=== PATIENT | female | born 1950 | race Two or more races ===

== ENCOUNTER 2024-02-26 16:08 | Emergency (ER) | payer MEDICARE, MEDICAID ==
[~2024-02-26] VITALS: Ht 165.1 cm; Wt 72.1 kg
[2024-02-26 16:54] LABS: Urine Bacteria None Seen /hpf (None Seen)
--- NOTE | 2024-02-26 16:57 | DVH ---
EXAM: CT STROKE CTH HISTORY: LEFT FACIAL DROOP COMPARISON: None TECHNIQUE: Axial images of the head were obtained and reformatted in coronal and sagittal planes. All CT scans at this medical facility are performed using dose modulation techniques as appropriate t o a performed exam including the following: Automated exposure control was utilized; adjustment of th e MA and/or KV according to patient size; and use of iterative reconstruction technique. CT Dose: CTDI volume is 51.84 mGy. Dose-length product is 831.2 mGy*cm FINDINGS: There is no evidence of acute intracranial hemorrhage, mass, mass effect midline shift. There is no h ydrocephalus or extra-axial fluid collection. Lucio-white matter differentiation is maintained.. The visualized paranasal sinuses and mastoid air cells are clear. The calvarium is intact. IMPRESSION: 1. No acute intracranial process. HS:Y
[2024-02-26 17:13] LABS: Urine Blood Negative /uL (Negative); Urine Clarity Clear (Clear); Urine Color Light-Yellow (Yellow); Urine Mucus FEW (None Seen); Urine Protein, UAD TRACE (Negative); Urine Urobilinogen Normal (Negative); Urine WBC <1 /hpf (0 - 5)
[2024-02-26 17:38] LABS: Basophils # (auto) 0.1 10 ^3/uL (0-0.2); Eosinophils # (auto) 0.2 10 ^3/uL (0-0.8); Eosinophils % (auto) 2.4 % (0.0-7.0); Hematocrit 45.9 % (36.0-46.0); Hemoglobin 15.3 g/dL (12.2-16.2); Lymphocytes # (auto) 2.5 10 ^3/uL (0.4-5.4); Lymphocytes % (auto) 34.2 % (10.0-50.0); Mean Corpuscular Hgb Conc. 33.3 g/dL (32.0-36.0); Monocytes # (auto) 0.5 10 ^3/uL (0-1.3); Monocytes % (auto) 6.6 % (0.0-12.0); Neutrophils % (auto) 55.8 % (37.0-80.0); Nucleated Red Blood Cells % 0.1 %; Platelet Count (auto) 189 10^3/uL (140-450); Red Blood Cells 5.46 10^6/uL (4.0-5.20); Red Cell Distribution Width 14.3 % (11.8-14.3); White Blood Cell 7.2 10^3/uL (4.4-10.8)
[2024-02-26 17:57] LABS: Alanine Aminotransferase 22 U/L (7-40); Albumin 4.6 g/dL (3.2-4.8); Alkaline Phosphatase 134 U/L (46-116); Anion Gap 7 (5-15); Aspartate Aminotransferase 14 U/L (13-40); BUN/Creatinine Ratio 16.9 (10.0-20.0); Bilirubin, Total 0.3 mg/dL (0.2-1.0); Blood Urea Nitrogen 11 mg/dL (9-23); Calcium 10.5 mg/dL (8.7-10.4); Carbon Dioxide 28 mmol/L (20-31); Chloride 106 mmol/L (98-107); Glucose 196 mg/dL (74-106); Magnesium 2.1 mg/dL (1.6-2.6); Sodium 141 mmol/L (136-145); Total Protein 7.9 g/dL (5.7-8.2)
--- NOTE | 2024-02-26 19:20 | ED.PDOC ---
History of Present Illness HPI Comments A 73 year old female presents to the ED with a chief complaint of LT sided facial weakness onset yesterday. Patient states she woke up yesterday experiencing LT sided facial weakness and numbness. Patient states she began experiencing LT eye pain with blurry vision on Saturday, saw PCP on Saturday but nothing was done. Patient denies any past medical history. No other symptoms or modifying factors present at this time. Chief Complaint: Left Sided Weakness Time Seen by MD: 19:09 Information Source: Patient, Relative (Child) Mode of Arrival: Ambulatory Severity: Moderate Timing: Days Duration: Since onset Prehospital treatment: None Past Medical History PAST MEDICAL HISTORY: Denies Surgical History: , Hysterectomy STAFF APPRAISER History: No Pertinent STAFF APPRAISER History Family History Family History: Reviewed,noncontributory to illness, Unknown Social History Smoker: Non-Smoker Alcohol: Denies ETOH Use Drugs: Denies Drug Use Lives In: Home Constitutional: denies: chills, diaphoresis, fatigue, fever, malaise, sweats, weakness, others EENTM: reports: blurred vision (LT eye), eye pain (LT eye); denies: double vision, ear bleeding, ear discharge, ear drainage, ear pain, ear ringing, eye redness, hearing loss, mouth pain, mouth swelling, nasal discharge, nose bleeding, nose congestion, nose pain, photophobia, tearing, throat pain, throat swelling, voice changes, others Respiratory: denies: cough, hemoptysis, orthopnea, SOB at rest, shortness of breath, SOB with excertion, stridor, wheezing, others Cardiovascular: denies: chest pain, dizzy spells, diaphoresis, Dyspnea on exertion, edema, irregular heart beat, left arm pain, lightheadedness, palpitations, PND, syncope, others Gastrointestinal: denies: abdomen distended, abdominal pain, blood streaked bowels, constipated, diarrhea, dysphagia, difficulty swallowing, hematemesis, melena, nausea, poor appetite, poor fluid intake, rectal bleeding, rectal pain, vomiting, others Genitourinary: denies: abnormal vagina bleeding, burning, dyspareunia, dysuria, flank pain, frequency, hematuria, incontinence, pain, , vagina discharge, urgency, others Neurological: reports: left sided numbness (facial), left sided weakness (facial); denies: dizziness, fainting, headache, numbness, paresthesia, pre- existing deficit, right sided numbness, right sided weakness, seizure, speech problems, tingling, tremors, weakness, others Musculoskeletal: denies: back pain, gout, joint pain, joint swelling, muscle pain, muscle stiffness, neck pain, others Integumetry: denies: bruises, change in color, change in hair/nails, dryness, l aceration, lesions, lumps, rash, wounds, others Allergic/Immunocompromised: denies: Difficulty Healing, Frequent Infections, Hives, Itching, others Hematologic/Lymphatic: denies: anemia, blood clots, easy bleeding, easy bruising, swollen glands, others Endocrine: denies: excessive hunger, excessive sweating, excessive thirst, excessive urination, flushing, intolerance to cold, intolerance to heat, unexplained weight gain, unexplained weight loss, others Psychiatric: denies: anxiety, bipolar disorder, depression, hopeless, panic disorder, schizophrenia, sleepless, suicidal, others All Other Systems: Reviewed and Negative Physical Exam General Appearance: Mild Distress, Normal HEENT: Normal ENT Inspection, Pharynx Normal, TMs Normal Neck: Full Range of Motion, Non-Tender, Normal, Normal Inspection Respiratory: Chest Non-Tender, Lungs Clear, No Accessory Muscle Use, No Respiratory Distress, Normal Breath Sounds Cardiovascular: No Edema, No JVD, No Murmur, No Gallop, Normal Peripheral Pulses, Regular Rate/Rhythm Breast Exam: Deferred Gastrointestinal: No Organomegaly, Non Tender, No Pulsatile Mass, Normal Bowel Sounds, Soft Genitalia: Deferred Pelvic: Deferred Rectal: Deferred Extremities: No calf tenderness, Normal capillary refill, Normal inspection, Normal range of motion, Non-tender, No pedal edema Musculoskeletal : Apperance: Normal Neurologic: Alert, scheduler conveyor II-XII nml as Tested (Seventh nerve palsy), Facial Droop (left), Motor Weakness, Normal Mood, No Sensory Deficits, Sensory Deficit (7th nerve paralysis) Cerebellar Function: Normal Reflexes: Normal Skin: Dry, Normal Color, Warm Lymphatic: No Adenopathy Was a procedure done? Was a procedure done?: No EKG EKG : Cardiac Rhythm: NSR (82 bpm) Comments NSR with 82 bpm Differential Dx Considerations may include: CVA TIA Hanson's palsy X-Ray, Labs, Meds, VS Vital Signs Date Time Temp Pulse Resp B/P (MAP) Pulse Ox O2 Delivery O2 Flow Rate FiO2 02/26/24 16:19 82 02/26/24 16:10 98.0 78 16 184/84 (117) 96 Lab Test 02/26/24 17:22 02/26/24 16:00 Range/Units White Blood Count 7.2 4.4-10.8 10^3/uL Red Blood Count 5.46 H 4.0-5.20 10^6/uL Hemoglobin 15.3 12.2-16.2 g/dL Hematocrit 45.9 36.0-46.0 % Mean Corpuscular Volume 84.0 80.0-100.0 fL Mean Corpuscular Hemoglobin 28.0 28.0-32.0 pg Mean Corpuscular Hemoglobin Concent 33.3 32.0-36.0 g/dL Red Cell Distribution Width 14.3 11.8-14.3 % Platelet Count 189 140-450 10^3/uL Mean Platelet Volume 10.0 6.9-10.8 fL Neutrophils (%) (Auto) 55.8 37.0-80.0 % Lymphocytes (%) (Auto) 34.2 10.0-50.0 % Monocytes (%) (Auto) 6.6 0.0-12.0 % Eosinophils (%) (Auto) 2.4 0.0-7.0 % Basophils (%) (Auto) 1.0 0.0-2.0 % Neutrophils # (Auto) 4.0 1.6-8.6 10 ^3/uL Lymphocytes # (Auto) 2.5 0.4-5.4 10 ^3/uL Monocytes # (Auto) 0.5 0-1.3 10 ^3/uL Eosinophils # (Auto) 0.2 0-0.8 10 ^3/uL Basophils # (Auto) 0.1 0-0.2 10 ^3/uL Nucleated Red Blood Cells 0.1 % Sodium Level 141 136-145 mmol/L Potassium Level 4.0 3.5-5.1 mmol/L Chloride Level 106 98-107 mmol/L Carbon Dioxide Level 28 20-31 mmol/L Anion Gap 7 5-15 Blood Urea Nitrogen 11 9-23 mg/dL Creatinine 0.65 0.550-1.02 mg/dL Glomerular Filtration Rate Calc 92 >90 mL/min BUN/Creatinine Ratio 16.9 10.0-20.0 Serum Glucose 196 H 74-106 mg/dL Calcium Level 10.5 H 8.7-10.4 mg/dL Magnesium Level 2.1 1.6-2.6 mg/dL Total Bilirubin 0.3 0.2-1.0 mg/dL Aspartate Amino Transferase (AST) 14 13-40 U/L Alanine Aminotransferase (ALT) 22 7-40 U/L Alkaline Phosphatase 134 H 46-116 U/L Troponin I High Sensitivity 6 </=34 ng/L Total Protein 7.9 5.7-8.2 g/dL Albumin 4.6 3.2-4.8 g/dL Urine Color Light-yellow Yellow Urine Clarity Clear Clear Urine pH 5.0 5.0-9.0 Urine Specific Marble 1.040 H 1.001-1.035 Urine Protein Trace H Negative Urine Ketones Negative Negative Urine Blood Negative Negative /uL Urine Nitrite Negative Negative Urine Bilirubin Negative Negative Urine Urobilinogen Normal Negative mg/dL Urine Leukocyte Esterase Negative Negative /uL Urine RBC 1 0 - 4 /hpf Urine WBC <1 0 - 5 /hpf Urine Squamous Epithelial Cells Few <5 /hpf Urine Bacteria None seen None Seen /hpf Urine Mucus Few None Seen Urine Glucose 4+ H Normal mg/dL [place] [id number] Ph: [phone] DIAGNOSTIC IMAGING Diagnostic Imaging Report : [id number] Signed PATIENT: SOFIA BEACH ACCT: [id number] UNIT: [id number] : 1950 LOC: ER ROOM / BED: / AGE / SEX: 73 / F ADM STATUS: REG ER SERVICE ORDERING PHYSICIAN: CELE WHITE DO PROCEDURE(s): CTH - STROKE CTH REASON: LEFT FACIAL DROOP ORDER NUMBER(s): [id number], ACCESSION NUMBER(s): [id number] EXAM: CT STROKE CTH HISTORY: LEFT FACIAL DROOP COMPARISON: None TECHNIQUE: Axial images of the head were obtained and reformatted in coronal and sagittal planes. All CT scans at this medical facility are performed using dose modulation techniques as appropriate to a performed exam including the following: Automated exposure control was utilized; adjustment of the MA and/or KV according to patient size; and use of iterative reconstruction technique. CT Dose: CTDI volume is 51.84 mGy. Dose-length product is 831.2 mGy*cm FINDINGS: There is no evidence of acute intracranial hemorrhage, mass, mass effect midline shift. There is no hydrocephalus or extra-axial fluid collection. Lucio-white matter differentiation is maintained.. The visualized paranasal sinuses and mastoid air cells are clear. The calvarium is intact. IMPRESSION: 1. No acute intracranial process. HS:Y ATED BY: PERCY ROGEL MD DICTATED DATE/TIME: 02/26/241655 SIGNED BY: PERCY ROGEL MD SIGNED DATE/TIME: 02/26/241655 CC: CBC is normal. CMP is normal except glucose 196 UA is normal. Troponin is six. EKG shows normal sinus rhythm with a heart rate of 82 and PVCs. The patient is we will be discharged with Hanson's palsy and treated with a tapering dose of prednisone. She is to follow up with her primary care for Neurology referral. Time of 1ST Reevaluation: 19:39 Reevaluation 1ST: Unchanged Patient Education/Counseling: Diagnosis, Treatment, Prognosis Family Education/Counseling: Diagnosis, Treatment, Prognosis Departure 1 Departure Time of Disposition: 19:37 Impression: Primary Impression: Hanson's palsy Disposition: 01 HOME / SELF CARE / HOMELESS Condition: Fair Additional Instructions: Reassessed patient, vital signs stable. Denies any new symptoms. Patient is able to tolerate PO and ambulate/be mobile at their baseline without concern. Risks and benefits of all medications given or prescribed, if any, discussed. All lab work, imaging and diagnostic studies were reviewed by me. The patient was counseled extensively on my clinical impression, diagnosis, expected course of the disease, and plan, including their follow-up care. Will discharge patient. Patient instructed to follow up with Primary Care Physician within 24-48 hours for Neurology referral. Strict return precautions given for further exacerbation of symptoms or for new symptoms. The patient was given the opportunity to ask questions and all questions were answered by myself and the nursing/tech staff. Patient is in agreement with the care plan. The patient verbally expressed understanding of the discharge instructions, including the reasons to return to the Emergency Department. e-Prescriptions Prednisone (Prednisone) 20 Mg Tab 20 MG PO DAILY for 5 Days, #5 MG Prov: OZZIE WHITTINGTON MD 02/26/24 Discharged With: Relative Critical Care Note Critical Care Time?: No Stability Stability form required: No I personally scribed for OZZIE WHITTINGTON MD ([email or web address]) on 02/26/24 at 19:20. Electronically submitted by Dee Lerma ([email or web address]). OZZIE WHITTINGTON MD Feb 26, 2024 19:20
[2024-02-26] MEDS ORDERED: PRED20TA2 PO (19:27)
[2024-02-26] MEDS ORDERED: PRED10TA PO (19:27)
[2024-02-26 22:15] VITALS: BP 165/89; PULSE 79; RESP 16; TEMP 98.6; O2SAT 99
--- NOTE | 2024-02-28 12:21 | ECG ---
[facility] Test Date: 2024-02-26 Test Time: 16:17:05 Pat Name: SOFIA BEACH Department: ED Room: Gender: F Non Licensed Operator: BRETT : 1950 Requested By: CELE WHITE Order Number: [id number] Reading MD: Measurements Intervals [place] Rate: 82 P: 42 CA: 147 QRS: 9 QRSD: 105 T: 57 QT: 364 QTc: 425 Interpretive Statements Sinus rhythm Ventricular premature complex Please click the below link to view image of tracing.
== END 2024-02-26 22:32 | disposition home or self-care (01) ==
LOC: ER 16:08
DX: G51.0 Bell's palsy (principal); Z90.710 Acquired absence of both cervix and uterus; Z98.890 Other specified postprocedural states; Z79.899 Other long term (current) drug therapy
CPT/HCPCS: 36415; 70450; 80053; 81001; 83735; 84484; 85025; 93005

== ENCOUNTER → 2024-03-04 | Outpatient (CLI) | payer MEDICARE, MEDICAID ==
[~2024-03-04] MED LIST: PRED10TA PO; PRED20TA2 PO
[2024-03-04 08:33] LABS: Basophils # (auto) 0.1 10 ^3/uL (0-0.2); Basophils % (auto) 0.9 % (0.0-2.0); Eosinophils # (auto) 0.2 10 ^3/uL (0-0.8); Eosinophils % (auto) 2.1 % (0.0-7.0); Hemoglobin 15.6 g/dL (12.2-16.2); Lymphocytes # (auto) 2.8 10 ^3/uL (0.4-5.4); Lymphocytes % (auto) 32.5 % (10.0-50.0); Mean Corpuscular Hemoglobin 27.7 pg (28.0-32.0); Mean Corpuscular Hgb Conc. 33.1 g/dL (32.0-36.0); Mean Corpuscular Volume 83.4 fL (80.0-100.0); Monocytes # (auto) 0.5 10 ^3/uL (0-1.3); Monocytes % (auto) 5.7 % (0.0-12.0); Neutrophils # (auto) 5.1 10 ^3/uL (1.6-8.6); Neutrophils % (auto) 58.8 % (37.0-80.0); Nucleated Red Blood Cells % 0.1 %; Platelet Count (auto) 198 10^3/uL (140-450); Red Blood Cells 5.63 10^6/uL (4.0-5.20); Red Cell Distribution Width 14.3 % (11.8-14.3); White Blood Cell 8.6 10^3/uL (4.4-10.8)
[2024-03-04 09:04] LABS: Alanine Aminotransferase 24 U/L (7-40); Albumin 4.4 g/dL (3.2-4.8); Alkaline Phosphatase 134 U/L (46-116); Anion Gap 6 (5-15); Aspartate Aminotransferase 12 U/L (13-40); Blood Urea Nitrogen 12 mg/dL (9-23); Calcium 10.2 mg/dL (8.7-10.4); Carbon Dioxide 29 mmol/L (20-31); Chloride 105 mmol/L (98-107); Cholesterol 286 mg/dL (< 200); Glucose 209 mg/dL (74-106); HDL Cholesterol 58 mg/dL (40-59); LDL Cholesterol 208 mg/dL (< 100); Potassium 4.3 mmol/L (3.5-5.1); Sodium 140 mmol/L (136-145); Triglycerides 170 mg/dL (< 150)
[2024-03-04 09:05] LABS: Bilirubin, Total 0.6 mg/dL (0.2-1.0); Total Protein 7.4 g/dL (5.7-8.2)
[2024-03-04 09:16] LABS: Urine Bacteria FEW /hpf (None Seen); Urine Blood Negative /uL (Negative); Urine Clarity Ex.Turbid (Clear); Urine Color Yellow (Yellow); Urine Mucus FEW (None Seen); Urine Protein, UAD TRACE (Negative); Urine Specific Gravity 1.026 (1.001-1.035); Urine Urobilinogen Normal (Negative); Urine WBC 32 /hpf (0 - 5); Urine pH 5.5 (5.0-9.0)
[2024-03-04 09:23] LABS: Creatinine, Urine < 3.00 mg/dL (30.0-125.0)
[2024-03-05 09:08] LABS: Hepatitis B Surface Antigen Negative (Negative)
[2024-03-05 09:29] LABS: Hepatitis A Ab IgM Negative
[2024-03-05 09:30] LABS: Hepatitis B Core IgM Negative
[2024-03-05 09:31] LABS: Hepatitis C Antibody Negative (Negative)
== END | disposition home or self-care (01) ==
LOC: LAB 08:11
DX: I10 Essential (primary) hypertension (principal); E11.9 Type 2 diabetes mellitus without complications; E78.5 Hyperlipidemia, unspecified; Z79.899 Other long term (current) drug therapy; R07.9 Chest pain, unspecified; R53.1 Weakness; R06.00 Dyspnea, unspecified
CPT/HCPCS: 36415; 80053; 80061; 80074; 81001; 82043; 82306; 82570; 83036; 83880; 84443; 85025

== ENCOUNTER → 2024-04-13 | Outpatient (CLI) | payer MEDICARE, MEDICAID ==
[~2024-04-13] VITALS: Ht 165.1 cm; Wt 73.5 kg
[2024-04-13] MEDS: REGADENOSON 0.4 MG/5 ML SYRG IV ONE ×2 (08:53→08:56)
--- NOTE | 2024-04-14 10:41 | DVHSR ---
APPROVED REPORT Exam: Nuclear Stress Test Indication: Chest pain Stress Tech: LUANA LOGAN Ht: 5 ft 5 in Wt: 162 lbs BSA: 1.81 m2 BMI: 26.95 Medical History Medical History: Diabetes, HTN, Hyperlipidemia, BARGER'S PALSY Allergies: No known drug allergies Stress Test Details Stress Test: Pharmacologic stress testing performed using 0.4 mg of regadenoson per 5 mL given IV ov er 10 seconds. Reason for pharmacologic stress test: CHEST PAIN. HR Resting HR: 81 bpmMax Heart Rate (APMHR): 145 bpm Max HR Achieved: 110 bpmTarget HR (85% APMHR): 123 bpm % of APMHR: 76 Recovery HR: 89 bpm BP Resting BP: 173/73 mmHg Recovery BP: 140/81 mmHg ECG Resting ECG: BIGEMINAL PVC'S ST Change: None Clinical Reason for Termination: Completed protocol Nurse Comments Received patient from Nuclear Medicine. Patient is A&O x4 and on RA. FOR VS please refer back to st ress test assessment documentation. Patient is connected to cardiac catheterization technologist. See cardio-neuro proce dural notes for addtional details. PIV flushes well. Reviewed POC and patient verbalizes understand ing and consents to test. Lexiscan stress test performed per protocol. microcomputer technician administered the Cardiolite. Pat ient tolerated well and vitals returned to baseline. Transferred to Nuclear Medicine via wheelchair with tech in stable condition. Stress ECG Conclusion Review of the myocardial perfusion images demonstrated homogeneous radiotracer uptake throughout the left ventricular myocardium both at rest and during stress. Left ventricular systolic function is no rmal and is estimated at 62%. There is no significant transient ischemic dilatation. NM EXAM: Myocardial Perfusion REST/STRESS Imaging Protocol: Rest Tc-99m/Stress Tc-99m 1 day Resting Data Rest SPECT myocardial perfusion imaging was performed in supine position 60 minutes following the int ravenous injection of 11.1 mCi of Tc-99m Sestamibi. Time of rest injection: 0750 Time of rest imagin Administration Route: IV Administration Site: Left Arm Pharmacologic Stress Pharmacologic stress test was performed by injecting Regadenoson 0.4 mg IV push followed by the intra venous injection of 32 mCi of Tc-99m Sestamibi. Time of stress injection: 0854 Time of stress imagin Administration Route: IV Administration Site: Left Arm Gated Stress SPECT was performed 60 minutes after stress injection. The images were gated to evaluate regional wall motion and calculate left ventricular ejection fracti on. Stress only was performed in the Supine position. Perfusion Normal perfusion on both the stress and rest images. Nuclear Conclusion ECG Findings: negative for ischemia Clinical Findings: negative for ischemia Nuclear Findings: negative for ischemia Exercise Capacity: not assessed Left Ventricular Function: normal Risk Study: low Review of the myocardial perfusion images demonstrated homogeneous radiotracer uptake throughout the left ventricular myocardium both at rest and during stress. Left ventricular systolic function is no rmal and is estimated at 62%. There is no significant transient ischemic dilatation.
== END | disposition home or self-care (01) ==
LOC: XYW 07:16
PROVIDERS: ATTEND Internal Medicine
DX: R07.9 Chest pain, unspecified (principal); E11.9 Type 2 diabetes mellitus without complications; E78.5 Hyperlipidemia, unspecified; I10 Essential (primary) hypertension
CPT/HCPCS: 93017; J2785; 78452

== ENCOUNTER → 2024-06-03 | Outpatient (CLI) | payer MEDICAID ==
[2024-06-03 10:54] LABS: Basophils # (auto) 0.1 10 ^3/uL (0-0.2); Basophils % (auto) 0.9 % (0.0-2.0); Eosinophils # (auto) 0.1 10 ^3/uL (0-0.8); Eosinophils % (auto) 2.5 % (0.0-7.0); Hematocrit 45.7 % (36.0-46.0); Hemoglobin 14.8 g/dL (12.2-16.2); Lymphocytes # (auto) 1.9 10 ^3/uL (0.4-5.4); Lymphocytes % (auto) 32.4 % (10.0-50.0); Mean Corpuscular Hemoglobin 27.1 pg (28.0-32.0); Mean Corpuscular Hgb Conc. 32.3 g/dL (32.0-36.0); Mean Corpuscular Volume 83.7 fL (80.0-100.0); Monocytes # (auto) 0.4 10 ^3/uL (0-1.3); Monocytes % (auto) 6.2 % (0.0-12.0); Neutrophils # (auto) 3.4 10 ^3/uL (1.6-8.6); Nucleated Red Blood Cells % 0.1 %; Platelet Count (auto) 171 10^3/uL (140-450); Red Blood Cells 5.46 10^6/uL (4.0-5.20); Red Cell Distribution Width 14.6 % (11.8-14.3); White Blood Cell 5.8 10^3/uL (4.4-10.8)
[2024-06-03 11:31] LABS: Alanine Aminotransferase 18 U/L (7-40); Albumin 4.6 g/dL (3.2-4.8); Alkaline Phosphatase 107 U/L (46-116); Anion Gap 10 (5-15); Aspartate Aminotransferase 13 U/L (13-40); BUN/Creatinine Ratio 11.5 (10.0-20.0); Calcium 9.8 mg/dL (8.7-10.4); Carbon Dioxide 24 mmol/L (20-31); Chloride 106 mmol/L (98-107); Potassium 3.9 mmol/L (3.5-5.1); Sodium 140 mmol/L (136-145); Urine Bacteria MANY /hpf (None Seen); Urine Blood Negative /uL (Negative); Urine Clarity Clear (Clear); Urine Color Light-Yellow (Yellow); Urine Mucus FEW (None Seen); Urine Protein, UAD TRACE (Negative); Urine Specific Gravity 1.026 (1.001-1.035); Urine Squamous Epithelial Cell FEW /hpf (<5); Urine Urobilinogen Normal (Negative); Urine WBC 6 /HPF (0-5)
[2024-06-03 11:32] LABS: Bilirubin, Total 0.4 mg/dL (0.2-1.0); HDL Cholesterol 55 mg/dL (40-59); Total Protein 7.3 g/dL (5.7-8.2)
[2024-06-03 11:33] LABS: Blood Urea Nitrogen 7 mg/dL (9-23); Cholesterol 325 mg/dL (< 200); Glucose 230 mg/dL (74-106); LDL Cholesterol 251 mg/dL (< 100); Triglycerides 190 mg/dL (< 150)
[2024-06-03 11:48] LABS: Creatinine, Urine 101.46 mg/dL (30.0-125.0)
== END | disposition home or self-care (01) ==
LOC: LAB 10:26
PROVIDERS: ATTEND Nurse Practitioner Family
DX: I10 Essential (primary) hypertension (principal); E11.65 Type 2 diabetes mellitus with hyperglycemia; E78.5 Hyperlipidemia, unspecified; E55.0 Rickets, active
CPT/HCPCS: 36415; 80053; 80061; 81001; 82043; 82306; 82570; 83036; 84443; 85025

== ENCOUNTER → 2024-06-26 | Outpatient (CLI) | payer MEDICAID, MEDICARE ==
[2024-06-26 16:20] LABS: Basophils # (auto) 0.1 10 ^3/uL (0-0.2); Basophils % (auto) 1.1 % (0.0-2.0); Eosinophils # (auto) 0.1 10 ^3/uL (0-0.8); Eosinophils % (auto) 1.3 % (0.0-7.0); Hematocrit 47.3 % (36.0-46.0); Hemoglobin 15.5 g/dL (12.2-16.2); Lymphocytes # (auto) 2.3 10 ^3/uL (0.4-5.4); Lymphocytes % (auto) 30.4 % (10.0-50.0); Mean Corpuscular Hemoglobin 27.2 pg (28.0-32.0); Mean Corpuscular Hgb Conc. 32.7 g/dL (32.0-36.0); Mean Corpuscular Volume 83.2 fL (80.0-100.0); Monocytes # (auto) 0.4 10 ^3/uL (0-1.3); Monocytes % (auto) 5.5 % (0.0-12.0); Neutrophils # (auto) 4.6 10 ^3/uL (1.6-8.6); Neutrophils % (auto) 61.7 % (37.0-80.0); Nucleated Red Blood Cells % 0.1 %; Platelet Count (auto) 194 10^3/uL (140-450); Red Blood Cells 5.69 10^6/uL (4.0-5.20); Red Cell Distribution Width 14.2 % (11.8-14.3); White Blood Cell 7.5 10^3/uL (4.4-10.8)
[2024-06-26 17:45] LABS: Alanine Aminotransferase 15 U/L (7-40); Alkaline Phosphatase 115 U/L (46-116); Anion Gap 9 (5-15); Aspartate Aminotransferase 14 U/L (13-40); BUN/Creatinine Ratio 17.5 (10.0-20.0); Blood Urea Nitrogen 14 mg/dL (9-23); Carbon Dioxide 23 mmol/L (20-31); Chloride 107 mmol/L (98-107); Potassium 3.9 mmol/L (3.5-5.1); Sodium 139 mmol/L (136-145); Total Protein 7.7 g/dL (5.7-8.2)
[2024-06-26 17:46] LABS: Bilirubin, Total 0.3 mg/dL (0.2-1.0); HDL Cholesterol 58 mg/dL (40-59)
[2024-06-26 17:48] LABS: Albumin 4.8 g/dL (3.2-4.8); Calcium 10.4 mg/dL (8.7-10.4); Cholesterol 278 mg/dL (< 200); Glucose 144 mg/dL (74-106); LDL Cholesterol 200 mg/dL (< 100); Triglycerides 284 mg/dL (< 150)
[2024-06-26 18:48] LABS: Creatinine, Urine 55.64 mg/dL (30.0-125.0)
[2024-06-26 18:52] LABS: Urine Bacteria FEW /hpf (None Seen); Urine Blood Negative /uL (Negative); Urine Clarity Clear (Clear); Urine Color Light-Yellow (Yellow); Urine Mucus FEW (None Seen); Urine Protein, UAD Negative (Negative); Urine Specific Gravity 1.041 (1.001-1.035); Urine Squamous Epithelial Cell FEW /hpf (<5); Urine Urobilinogen Normal (Negative); Urine WBC 1 /HPF (0-5)
== END | disposition home or self-care (01) ==
LOC: LAB 15:54
PROVIDERS: ATTEND Nurse Practitioner Family
DX: Z12.11 Encounter for screening for malignant neoplasm of colon (principal); E11.9 Type 2 diabetes mellitus without complications; E55.9 Vitamin D deficiency, unspecified; E78.5 Hyperlipidemia, unspecified
CPT/HCPCS: 36415; 80053; 80061; 81001; 82043; 82306; 82570; 83036; 85025

== ENCOUNTER → 2024-06-29 | Outpatient (CLI) | payer MEDICAID, MEDICARE | END | disposition home or self-care (01) | LOC: LAB 15:43 | DX: Z12.11 Encounter for screening for malignant neoplasm of colon (principal); E11.9 Type 2 diabetes mellitus without complications; E78.5 Hyperlipidemia, unspecified; E55.9 Vitamin D deficiency, unspecified | CPT/HCPCS: 82274 ==

== ENCOUNTER → 2024-12-24 | Outpatient (CLI) | payer MEDICAID ==
[2024-12-24 09:01] LABS: Hematocrit 43.8 % (36.0-46.0); Hemoglobin 14.7 g/dL (12.2-16.2); Mean Corpuscular Hemoglobin 27.7 pg (28.0-32.0); Mean Corpuscular Volume 82.1 fL (80.0-100.0); Nucleated Red Blood Cells % 0.0 %
[2024-12-24 09:36] LABS: Alanine Aminotransferase 18 U/L (7-40); Albumin 4.5 g/dL (3.2-4.8); Alkaline Phosphatase 109 U/L (46-116); Anion Gap 10 (5-15); BUN/Creatinine Ratio 14.1 (10.0-20.0); Calcium 9.5 mg/dL (8.7-10.4); Carbon Dioxide 23 mmol/L (20-31); HDL Cholesterol 56 mg/dL (40-59); Potassium 4.0 mmol/L (3.5-5.1); Sodium 141 mmol/L (136-145); Total Protein 7.5 g/dL (5.7-8.2); Triglycerides 115 mg/dL (< 150)
[2024-12-24 09:37] LABS: Bilirubin, Total 0.7 mg/dL (0.2-1.0)
[2024-12-24 09:41] LABS: Blood Urea Nitrogen 9 mg/dL (9-23); Chloride 108 mmol/L (98-107); Cholesterol 300 mg/dL (< 200); Glucose 223 mg/dL (74-106)
[2024-12-24 10:00] LABS: Urine Protein, UAD Negative (Negative)
== END | disposition home or self-care (01) ==
LOC: LAB 08:35
PROVIDERS: ATTEND Nurse Practitioner Family
DX: E11.29 Type 2 diabetes mellitus with other diabetic kidney complication (principal); E78.5 Hyperlipidemia, unspecified; E55.9 Vitamin D deficiency, unspecified
CPT/HCPCS: 36415; 80053; 80061; 81001; 82306; 82607; 83036; 84443; 85025

== ENCOUNTER 2025-03-24 09:25 | Outpatient (CLI) | payer MEDICAID ==
[2025-03-24 10:23] LABS: Hematocrit 42.8 % (36.0-46.0); Hemoglobin 14.2 g/dL (12.2-16.2); Mean Corpuscular Hemoglobin 27.6 pg (28.0-32.0); Mean Corpuscular Volume 83.1 fL (80.0-100.0); Nucleated Red Blood Cells % 0.1 %
[2025-03-24 10:48] LABS: Urine Protein, UAD TRACE (Negative)
[2025-03-24 10:56] LABS: Alanine Aminotransferase 24 U/L (7-40); Albumin 4.6 g/dL (3.2-4.8); Anion Gap 7 (5-15); BUN/Creatinine Ratio 9.0 (10.0-20.0); Calcium 9.7 mg/dL (8.7-10.4); Carbon Dioxide 29 mmol/L (20-31); Chloride 106 mmol/L (98-107); HDL Cholesterol 56 mg/dL (40-59); Potassium 3.8 mmol/L (3.5-5.1); Sodium 142 mmol/L (136-145); Total Protein 7.7 g/dL (5.7-8.2)
[2025-03-24 10:57] LABS: Alkaline Phosphatase 118 U/L (46-116); Bilirubin, Total 0.6 mg/dL (0.2-1.0); Blood Urea Nitrogen 6 mg/dL (9-23); Cholesterol 335 mg/dL (< 200); Glucose 192 mg/dL (74-106); Triglycerides 186 mg/dL (< 150)
[2025-03-24 11:04] LABS: Microalb/Creat Ratio, Urine 133.0
== END 2025-03-24 17:00 | disposition home or self-care (01) ==
LOC: LAB 09:25
PROVIDERS: ATTEND Nurse Practitioner Family
DX: I10 Essential (primary) hypertension (principal); E11.9 Type 2 diabetes mellitus without complications; E78.5 Hyperlipidemia, unspecified; E55.9 Vitamin D deficiency, unspecified
CPT/HCPCS: 36415; 80053; 80061; 81001; 82043; 82306; 82570; 83036; 84443; 85025